=== PATIENT | female | born 1965 | race Caucasian/White ===

== ENCOUNTER → 2021-04-25 | Outpatient (CLI) | payer BC | LOC: MAMO 13:39 | DX: R92.8 Other abnormal and inconclusive findings on diagnostic imaging of breast (principal) | CPT/HCPCS: 76641-RT; 77065 ==

== ENCOUNTER → 2022-02-27 | Outpatient (CLI) | payer BC | LOC: KOH-I 13:29 | DX: M25.561 Pain in right knee (principal) | CPT/HCPCS: 73721 ==